=== PATIENT | female | born 1965 | race Two or more races ===

== ENCOUNTER 2022-02-13 13:38 | Emergency (ER) | payer OTHER ==
[~2022-02-13] VITALS: Ht 165.1 cm; Wt 110.7 kg
[2022-02-13] MEDS ORDERED: VITAMIN D3250 MCG PO (14:43)
[2022-02-13] MEDS ORDERED: COZAAR25 MG PO (14:43)
[2022-02-13] MEDS ORDERED: ALBUTEROL2.5 MG/3 M IH (14:43)
[2022-02-13] MEDS ORDERED: IPRATROPIU0.2 MG/1 M IH (14:43)
[2022-02-13] MEDS ORDERED: LYRICA50 MG PO (14:44)
[2022-02-13] MEDS ORDERED: KETO10TA2 PO (17:38)
== END 2022-02-13 19:41 | disposition home or self-care (01) ==
LOC: ER 13:38
DX: M25.572 Pain in left ankle and joints of left foot (principal); Z88.0 Allergy status to penicillin; J45.909 Unspecified asthma, uncomplicated